=== PATIENT | female | born 1940 | race Caucasian/White ===

== ENCOUNTER 2018-02-03 23:16 | Observation (INO) | payer OTHER ==
--- NOTE | 2018-02-04 00:21 | RAD ---
EXAM DESCRIPTION: Chest,1 View CLINICAL HISTORY: 77 years Female mild confusion COMPARISON: None. FINDINGS: Heart appears at the upper limits. Mediastinum appears widened with some increased density in the perihilar regions and upper lobes. Question infiltrate versus fibrosis. No pleural effusion. No pneumothorax. IMPRESSION: Mild widening of the mediastinum likely on the basis of ectatic vasculature Prominent costochondral cartilage of the first ribs bilaterally There is prominent interstitial markings particularly in the perihilar regions likely related to senescent lung or fibrotic change. Acute infiltrate not entirely excluded. Electronically signed by: Yani Singh MD 02/04/2018 12:20 AM CDT
--- NOTE | 2018-02-04 00:45 | CT ---
PROCEDURE: Head CLINICAL HISTORY: 77 years Female confusion COMPARISON: None. TECHNIQUE: Contiguous axial CT images obtained through the brain without IV contrast. This exam was performed according to our department optimization program which includes automated exposure control, adjustment of the mA and/or kv according to patient size and/or use of iterative reconstruction technique. FINDINGS: The ventricles and sulci are prominent consistent with mild age-related atrophy. Mild periventricular white matter disease. No midline shift or mass effect. No masses identified. No acute intracranial hemorrhage. Previous lacunar infarct in the left basal ganglia. Motion artifact limits evaluation of the superior aspect of the hemispheres. No fluid or significant mucosal thickening in the visualized paranasal sinuses. No depressed calvarial fractures. IMPRESSION: No acute intracranial abnormality is identified. Electronically signed by: Yani Singh MD 02/04/2018 12:44 AM CDT
[2018-02-04] MEDS ORDERED: cefTRIAXone SODIUM 1 GM in SODIUM CHL 0.9% 50ML MIN-BAG+ 50 ML IVPB ONE (02:03)
[2018-02-04] MEDS ORDERED: SODIUM CHLORIDE 0.9% 1000ML 1,000 ML IVS ONE (02:04)
[2018-02-04] MEDS ORDERED: SODIUM CHL 0.9% 50ML MIN-BAG+ 50 ML IVPB ONE ×3 (02:06→19:20)
[2018-02-04] MEDS ORDERED: cefTRIAXone SODIUM 1 GM VIAL ONE ×3 (02:06→19:21)
[2018-02-04] MEDS ORDERED: FOLIC ACID INJ 5 MG/ML VIAL IV ONE (02:45)
--- NOTE | 2018-02-04 02:45 | ED.PDOC ---
History of Present Illness - General Chief Complaint: Neuro Symptoms/Deficits Stated Complaint: altered mental status Time Seen by Provider: 02/03/18 23:20 Source: patient, family Exam Limitations: no limitations - History of Present Illness Initial Comments: the patient is a 77-year-old female brought into the emergency room by her family secondary to some mild confusion that's been progressive since around 3 or 4 in the afternoon. The patient is in visiting family from [place]. She does have multiple long-term medical problems including chronic pain and anxiety as well as some neuropathy for which she takes multiple sedating medications to treat these issues. She has not had any falls. No chest pain or shortness of breath. No syncope or near syncope. She has just been mildly confused through the afternoon sometimes talking to herself a little bit. Speech is a little bit slurred. She is drowsy. She has taken her evening sleeping medications. She moves all extremities well. She is actually oriented 4 on my exam. there are no focal neurological deficits. She is pleasant and cooperative. She does have rheumatoid arthritis and does take methotrexate. Timing/Duration: unsure Severity: mild Improving Factors: nothing Worsening Factors: nothing Associated Symptoms: denies symptoms Allergies/Adverse Reactions: Allergies Losartan Allergy (Verified 02/03/18 23:57) martinez Allergy (Uncoded 02/03/18 23:57) Home Medications: Ambulatory Orders Amlodipine Besylate 10 mg PO DAILY 02/03/18 Aspirin [Aspirin Adult Low Dose] 81 mg PO DAILY 02/03/18 Atorvastatin Calcium 40 mg PO BEDTIME 02/03/18 Baclofen 10 mg PO NOON 02/03/18 Carvedilol [Coreg] 3.125 mg PO BID 02/03/18 Docusate Sodium [Colace Cap] 100 mg PO PRN 02/03/18 Folic Acid 1 mg PO DAILY 02/03/18 Hydralazine HCl 50 mg PO TID 02/03/18 Hydromorphone HCl 4 mg PO DAILY 02/03/18 Levothyroxine Sodium [Synthroid] 112 mcg PO DAILY@0700 02/03/18 Lorazepam 1 mg PO PRN 02/03/18 Methotrexate Sodium [Methotrexate] 7.5 mg PO WKLY 02/03/18 Nortriptyline HCl 50 mg PO BEDTIME 02/03/18 Omeprazole 20 mg PO PRN 02/03/18 Ropinirole Hydrochloride [Ropinirole HCl] 0.25 mg PO DAILY 02/03/18 Trazodone HCl 50 mg PO BEDTIME 02/03/18 Vitamin D & K 1 tablet PO 02/03/18 Review of Systems - Review of Systems Constitutional: States: malaise EENTM: States: no symptoms reported Respiratory: States: no symptoms reported Cardiology: States: no symptoms reported Gastrointestinal/Abdominal: States: no symptoms reported Genitourinary: States: no symptoms reported Musculoskeletal: States: see HPI Skin: States: no symptoms reported Neurological: States: see HPI Endocrine: States: no symptoms reported All other Systems: No Change from Baseline Past Medical History (General) - Patient Medical History Hx Seizures: No Hx Stroke: No Hx Dementia: No Hx Asthma: No Hx of COPD: No Hx Cardiac Disorders: No Hx Congestive Heart Failure: No Hx Pacemaker: No Hx Hypertension: Yes Hx Thyroid Disease: Yes Hx Diabetes: No Hx Gastroesophageal Reflux: Yes Hx Renal Disease: No Hx Cancer: Yes - left throat melanoma Hx of HIV: No Surgical History: other - Vaccination History Hx Tetanus, Diphtheria Vaccination: No Hx Influenza Vaccination: Yes Hx Pneumococcal Vaccination: No Family Medical History - Family History Son Living Status: Still Living Physical Exam - Physical Exam General Appearance: Other - the patient is drowsy but easily arousable. She is oriented 4. No acute distress. Speech is a little bit slurred, but does improve the more awake she has. Eye Exam: bilateral normal Ears, Nose, Throat: hearing grossly normal, normal ENT inspection, normal pharynx Neck: non-tender, full range of motion Respiratory: lungs clear, normal breath sounds, no respiratory distress, no accessory muscle use Cardiovascular/Chest: normal peripheral pulses, regular rate, rhythm, no edema Peripheral Pulses: radial,right: 2+, radial,left: 2+, dorsalis pedis,right: 2+, dorsalis pedis,left: 2+ Gastrointestinal/Abdominal: non tender, soft Rectal Exam: deferred Back Exam: no CVA tenderness Extremity: non-tender, no pedal edema, no calf tenderness, normal capillary refill, other - chronic limitations related to arthritis Neurologic: compliance assistant II-XII nml as tested, alert - but drowsy, normal mood/affect, oriented x 3, other - she does have chronic peripheral neuropathy but strength appears to be preserved throughout Skin Exam: normal color Comments: Vital Signs - 24 hr 02/03/18 02/04/18 02/04/18 23:16 00:17 00:45 Temperature 99.7 F H Pulse Rate [ 85 87 84 monitor] Respiratory 16 16 Rate Blood Pressure 155/85 149/77 145/65 [Left Arm] O2 Sat by Pulse 95 97 Oximetry 02/04/18 02/04/18 02/04/18 00:46 00:47 01:17 Temperature Pulse Rate [ 90 93 H 80 monitor] Respiratory 15 Rate Blood Pressure 149/80 147/52 149/71 [Left Arm] O2 Sat by Pulse 98 Oximetry 02/04/18 02:23 Temperature 98.9 F Pulse Rate [ 92 H monitor] Respiratory 15 Rate Blood Pressure 166/72 [Left Arm] O2 Sat by Pulse 94 L Oximetry Progress - Progress Progress: 02/04/18 02:51 the patient is a 77-year-old female presenting to the emergency room with mild delirium. Most likely this is a combination of some dehydration and multiple sedating-type medications. For now the sedatives will be held. She is receiving a liter of IV fluids. She will need to be monitored to make sure that her delirium corrects with this. She does additionally have a very small urinary tract infection. Urine will be cultured. She is being given one dose of Rocephin currently. She is additionally receiving empirically a milligram of folic acid IV. She does need to be monitored for development of any other clinically evident infection as she does take methotrexate. Continue telemetry monitoring. Repeat CBC tomorrow may be warranted for reevaluation of her hemoglobin and hematocrit as they are mildly low and we do not have any previous baseline to compare to. She has not clinically had any evidence of any GI bleed in the last 6 or 7 years according to her. Stool guaiac be performed if she has a bowel movement. - Results/Orders Results/Orders: 02/03/18 23:29 Telemetry .CONTINUOUS Vital Signs-Tilt PRN 02/03/18 23:30 EKG STAT 02/04/18 00:10 URINE CULTURE W/COLONY COUNT Stat 02/04/18 02:04 Sodium Chloride 0.9% 1000ML [Ns 1000 ml] 1,000 ml IVS ONCE 02/04/18 23:30 EKG STAT Laboratory Results - last 24 hr 02/03/18 02/03/18 02/03/18 00:10 00:10 23:29 WBC 3.8 L RBC 2.98 L Hgb 9.9 L Hct 29.4 L MCV 98.7 MCH 33.2 H MCHC 33.7 RDW 15.1 H Plt Count 140 MPV 8.9 Absolute Neuts (auto) 3.00 Absolute Lymphs (auto) 0.40 L Absolute Monos (auto) 0.30 Absolute Eos (auto) 0.10 Absolute Basos (auto) 0.00 Neutrophils % 78.7 H Lymphocytes % 9.2 L Monocytes % 8.9 Eosinophils % 2.7 Basophils % 0.5 PT 10.0 INR 1.00 PTT (SP) 30.5 Sodium 135 Potassium 4.1 Chloride 102 Carbon Dioxide 21 Anion Gap 16.1 BUN 41 H Creatinine 1.60 H BUN/Creatinine Ratio 25.6 H Random Glucose 127 H Serum Osmolality 281.8 Calcium 9.1 Magnesium 1.7 L Total Bilirubin 0.6 AST 42 ALT 43 Alkaline Phosphatase 84 Creatine Kinase 76 CK-MB (CK-2) 2.2 CK-MB (CK-2) % Not Reportable Troponin I < 0.02 B-Natriuretic Peptide 22.5 Serum Total Protein 6.8 Albumin 3.5 Globulin 3.3 Albumin/Globulin Ratio 1.1 TSH 0.34 Urine Color Urine Appearance Urine pH Ur Specific [place] Urine Protein Urine Glucose (UA) Urine Ketones Urine Blood Urine Nitrite Urine Bilirubin Urine Urobilinogen Ur Leukocyte Esterase Urine RBC Urine WBC Ur Epithelial Cells Urine Bacteria 02/04/18 00:10 WBC RBC Hgb Hct MCV MCH MCHC RDW Plt Count MPV Absolute Neuts (auto) Absolute Lymphs (auto) Absolute Monos (auto) Absolute Eos (auto) Absolute Basos (auto) Neutrophils % Lymphocytes % Monocytes % Eosinophils % Basophils % PT INR PTT (SP) Sodium Potassium Chloride Carbon Dioxide Anion Gap BUN Creatinine BUN/Creatinine Ratio Random Glucose Serum Osmolality Calcium Magnesium Total Bilirubin AST ALT Alkaline Phosphatase Creatine Kinase CK-MB (CK-2) CK-MB (CK-2) % Troponin I B-Natriuretic Peptide Serum Total Protein Albumin Globulin Albumin/Globulin Ratio TSH Urine Color Yellow Urine Appearance Clear Urine pH 5.0 Ur Specific [place] 1.020 Urine Protein 30 Urine Glucose (UA) Negative Urine Ketones Trace Urine Blood Trace-lysed H Urine Nitrite Negative Urine Bilirubin Negative Urine Urobilinogen 0.2 Ur Leukocyte Esterase Small H Urine RBC 1-3 Urine WBC 5-10 H Ur Epithelial Cells 1-3 Urine Bacteria 1+ EKG shows normal sinus rhythm at 81 bpm. Possible mild right axis deviation. No acute ST segment changes or T-wave changes consistent with current ischemia. Head CT is negative for any acute pathology. Chest x-ray does show widening in the upper mediastinum which looking at her paperwork and talking to her is a longer standing issue. no pneumothorax or new obvious infiltrates. - EKG/XRAY/CT CT Ordered: Yes CT Interpretation Call Back: No - acute abnormality Departure - Departure Clinical Impression: Dehydration, Delirium, Cystitis Disposition: Admit Patient Condition: Fair Home Medications: Ambulatory Orders Amlodipine Besylate 10 mg PO DAILY 02/03/18 Aspirin [Aspirin Adult Low Dose] 81 mg PO DAILY 02/03/18 Atorvastatin Calcium 40 mg PO BEDTIME 02/03/18 Baclofen 10 mg PO NOON 02/03/18 Carvedilol [Coreg] 3.125 mg PO BID 02/03/18 Docusate Sodium [Colace Cap] 100 mg PO PRN 02/03/18 Folic Acid 1 mg PO DAILY 02/03/18 Hydralazine HCl 50 mg PO TID 02/03/18 Hydromorphone HCl 4 mg PO DAILY 02/03/18 Levothyroxine Sodium [Synthroid] 112 mcg PO DAILY@0700 02/03/18 Lorazepam 1 mg PO PRN 02/03/18 Methotrexate Sodium [Methotrexate] 7.5 mg PO WKLY 02/03/18 Nortriptyline HCl 50 mg PO BEDTIME 02/03/18 Omeprazole 20 mg PO PRN 02/03/18 Ropinirole Hydrochloride [Ropinirole HCl] 0.25 mg PO DAILY 02/03/18 Trazodone HCl 50 mg PO BEDTIME 02/03/18 Vitamin D & K 1 tablet PO 02/03/18 Decision To Admit - Decistion To Admit Decision to Admit Reason: Medical Nature Decision to Admit Date: 02/04/18 Decision to Admit Time: 02:55
[2018-02-04] MEDS ORDERED: SODIUM CHLORIDE 0.9% (FLUSH) 10 ML SYG IV PRN (02:48)
[2018-02-04] MEDS ORDERED: IV SET AND CAP CHANGE INJ INJ SCH (03:00)
--- NOTE | 2018-02-04 03:22 | HP ---
SUPERVISING PHYSICIAN: Erwin Parsons MD CHIEF COMPLAINT: Confusion. HISTORY OF PRESENT ILLNESS: This is a 77-year-old female who was brought to the Emergency Room by her family stating she has been having some increased confusion since this afternoon. The patient is actually here visiting her son from [place]. She got into town on Thursday and basically from the airport, went home, went to sleep, woke up and had some breakfast and had some increased confusion. She also states she has been weak. She does not complain of any fevers or chills, no nausea or vomiting. Nothing makes the confusion any worse or better. She states she does not have this issue at home. In the Emergency Room, her workup included lab as well as urinalysis. Her urinalysis showed small leukocyte esterase, 5 to 10 WBCs. Chemistry showed acute kidney injury with BUN 41, creatinine 1.60. White blood cell count was 3.8, hemoglobin 9.9, platelet count 140 and 78.7% neutrophils. She had a CT of the head which showed no acute intracranial abnormalities. The patient was referred for Observation by Dr. Saeed in the Emergency Room. I saw her this morning and currently she is alert and oriented. In discussing her history of present illness, she seems to be alert and oriented times 4, however, when talking about her medical history, we actually discussed her rheumatoid arthritis and what she was taking for it. We continued to discuss her past medical history and towards the end, she told me once again she had rheumatoid arthritis. She had obviously forgotten that she had already told me she had rheumatoid arthritis. Other than that, her exam is fairly benign. PAST MEDICAL HISTORY: 1. Hypertension. 2. Rheumatoid arthritis. 3. Hypothyroidism. 4. Osteoarthritis. 5. Hyperlipidemia. 6. Anxiety. PAST SURGICAL HISTORY: 1. Right facial melanoma resection. CURRENT MEDICATIONS: 1. Amlodipine 10 mg p.o. daily. 2. Aspirin 81 mg p.o. daily. 3. Atorvastatin 40 mg p.o. q.h.s. 4. Baclofen 10 mg p.o. at noon. 5. Carvedilol 3.125 mg p.o. b.i.d. 6. Colace 100 mg p.o. p.r.n. for constipation. 7. Folic acid 1 mg p.o. daily. 8. Hydralazine 50 mg p.o. t.i.d. 9. Hydromorphone 4 mg p.o. daily. 10. Levothyroxine 112 mcg p.o. daily. 11. Lorazepam 1 mg p.o. p.r.n. for anxiety. 12. Methotrexate 7.5 mg p.o. weekly. 13. Nortriptyline 50 mg p.o. at bedtime. 14. Omeprazole p.o. p.r.n. for reflux. 15. Requip 0.25 mg p.o. daily. 16. Trazodone 50 mg p.o. at bedtime. ALLERGIES: LOSARTAN. FAMILY HISTORY: Family history reviewed and she cannot think of any significant medical history in her mother, father, brothers or sisters. SOCIAL HISTORY: Nondrinker, nonsmoker. No illicit drugs. REVIEW OF SYSTEMS: CONSTITUTIONAL: No fever or chills. No recent weight loss or weight gain. HEENT: No headaches, vision changes, ear pain, nasal congestion or throat pain. RESPIRATORY: No cough, hemoptysis or pleuritic chest pain. CARDIOVASCULAR: No chest pain, palpitations or peripheral edema. GASTROINTESTINAL: No nausea, vomiting, diarrhea, constipation or abdominal pain. GENITOURINARY: No dysuria, frequency or flank pain. HEMATOLOGIC: No easy bruising and no transfusion reaction. MUSCULOSKELETAL: She does have some joint pain, primarily in her knees and muscle cramping. ENDOCRINE: No polydipsia, polyuria or polyphagia. No heat or cold intolerance. NEUROLOGIC: Positive for weakness, positive for some confusion. No syncope, paresthesias or seizures. PHYSICAL EXAMINATION: VITAL SIGNS: Blood pressure 182/77. Heart rate 77. Respiratory rate 16. Temperature 97.7. Oxygen saturation 96%. GENERAL: Ms. Liz is a 77-year-old female who in no active distress currently. HEENT: Normocephalic, atraumatic. Pupils are equal and reactive. No nasal drainage. Throat with moist mucosa. NECK: Supple. Midline trachea. No jugular venous distention. CHEST: Symmetrical with equal rise and fall of the chest with inspiration and expiration. Lung sounds are clear to auscultation bilaterally. CARDIOVASCULAR: Regular rate and rhythm. Normal S1, S2. ABDOMEN: Soft. Positive bowel sounds. No tenderness to palpation. No organomegaly. GENITOURINARY: Deferred. EXTREMITIES: Lower extremities with no edema. Pulses 2+. Capillary refill is less than 2 seconds. NEUROLOGIC: The patient is alert and oriented. Moves all extremities. Extraocular movements are intact. There are no focal deficits. Cranial nerves II-XII are grossly intact. LABORATORY: Labs and films are as discussed in history of present illness. ASSESSMENT: 1. Altered mental status. 2. Acute kidney injury. 3. Urinary tract infection. 4. History of rheumatoid arthritis. 5. Hypertension. PLAN: At this point, the patient is being placed on IV fluids as well as empiric antibiotics for urinary tract infection. We will continue these and reevaluate her labs in the morning. We will follow cultures as well. It also appears that altered mental status could be contributed to by some of the medications she is on. She is on Dilaudid, trazodone, nortriptyline and lorazepam. These certainly can contribute to some confusion. However, it appears she is pretty lucid for the most part this morning, but has some forgetfulness. I am wondering if she likely has onset of dementia. She would benefit from outpatient workup for dementia and possibly medications for such. She is from [place] and has a primary care physician there she sees on a regular basis. I am restarting her home medications except for the possibly contributing sedative medications. We will see how she does with this. #[id number] [facility]
[2018-02-04] MEDS: ENOXAPARIN SODIUM 30 MG/0.3 ML SYG SUBCU SCH (03:49)
[2018-02-04] MEDS: SODIUM CHLORIDE 0.9% 1000ML 1,000 ML IVS PRN ×2 (09:25→20:39)
[2018-02-04] MEDS ORDERED: NON-FORMULARY MEDICATION 1 EA MIS (Hydralazine Hcl [Hydralazine Hcl] 50 MG) PO SCH (09:45)
[2018-02-04] MEDS ORDERED: OMEPRAZOLE CAP 20 MG CAP PO PRN (09:45)
[2018-02-04] MEDS ORDERED: NON-FORMULARY MEDICATION 1 EA MIS (Amlodipine Besylate [Amlodipine Besylate] 10 MG) PO SCH (09:45)
[2018-02-04] MEDS ORDERED: DOCUSATE SODIUM 100 MG CAP PO SCH (10:00)
[2018-02-04] MEDS ORDERED: amLODIPine BESYLATE 5 MG TAB ONE (10:06)
[2018-02-04] MEDS: LEVOTHYROXINE SODIUM 0.112 MG TAB PO SCH (10:26)
[2018-02-04] MEDS: FOLIC ACID 1 MG TAB PO SCH (10:26)
[2018-02-04] MEDS: CARVEDILOL 3.125 MG TAB PO SCH ×2 (10:26→20:40)
[2018-02-04] MEDS: ASPIRIN (CHEWABLE) 81 MG TAB PO SCH (10:26)
[2018-02-04] MEDS: cefTRIAXone SODIUM 1 GM in SODIUM CHL 0.9% 50ML MIN-BAG+ 50 ML IVPB SCH (14:48)
[2018-02-04] MEDS ORDERED: ATORVASTATIN 20 MG TAB PO SCH (21:00)
[2018-02-05] MEDS: cefTRIAXone SODIUM 1 GM in SODIUM CHL 0.9% 50ML MIN-BAG+ 50 ML IVPB SCH ×2 (03:03→16:41)
[2018-02-05] MEDS: ENOXAPARIN SODIUM 30 MG/0.3 ML SYG SUBCU SCH (03:03)
[2018-02-05] MEDS: LEVOTHYROXINE SODIUM 0.112 MG TAB PO SCH (06:12)
[2018-02-05] MEDS: CARVEDILOL 3.125 MG TAB PO SCH (08:21)
[2018-02-05] MEDS: ASPIRIN (CHEWABLE) 81 MG TAB PO SCH (08:21)
[2018-02-05] MEDS: FOLIC ACID 1 MG TAB PO SCH (08:21)
[2018-02-05] MEDS ORDERED: POTASSIUM CHLORIDE 20 MEQ TAB PO ONE (08:37)
[2018-02-05] MEDS ORDERED: amLODIPine BESYLATE 5 MG TAB PO SCH (09:00)
[2018-02-05] MEDS: SODIUM CHLORIDE 0.9% 1000ML 1,000 ML IVS PRN (11:38)
[2018-02-05 16:01] VITALS: BP 165/71; TEMP 98.4; O2SAT 93
--- NOTE | 2018-02-06 10:18 | DS ---
SUPERVISING PHYSICIAN: Erwin Parsons MD DISCHARGE DIAGNOSES: 1. Altered mental status. 2. Acute kidney injury. 3. Urinary tract infection. 4. History of rheumatoid arthritis. 5. Hypertension. HISTORY OF PRESENT ILLNESS: This is a 77-year-old female who presented to the Emergency Room by her family with complaints of increased confusion. The patient is actually lives in [place] and is visiting her son. Over the previous day and a half she had increasing confusion with weakness. There were no complaints of fever or chills, no nausea or vomiting. In the Emergency Room her urinalysis showed a small amount of leukocyte esterase, 5 to 10 WBCs. Her chemistries showed acute kidney injury with BUN of 41, creatinine 1.6. WBC 3.8 , hemoglobin 9.9, platelet count 140,000 and 78.7% neutrophils. CT of the head showed no acute intracranial abnormalities. She was placed in observation in the hospital. HOSPITAL COURSE: She received fluids in the Emergency Room and her home medications were restarted. She was also started on Ceftriaxone for the urinary tract infection. Cultures were obtained on her urine prior to starting antibiotics. Her vital signs had been basically within normal limits. She had a low grade temperature of 99.8. This morning her laboratory showed a normalized WBC of 5.3 with electrolytes that are within normal limits with the exception of her potassium which was low at 3. BUN 18, creatinine 1.02. At this time she is alert and oriented. Her son is at bedside and states she is at baseline. They also said she would remain in [place] for some time so she will followup with his primary care physician which is Noemí Wong at [facility]. She will be discharged home today in stable condition. DISCHARGE PLAN: The patient will be discharged home in stable condition. She is to resume her previous medications, her previous activity and her previous diet. She has a followup with Noemí Wong NP on 02/09/18 at 9:30 AM. I have sent her a prescription for Cefdinir for 10 days. Her repeat potassium this morning after supplementation was 4. It would be beneficial at her followup to do an electrolyte panel as well as followup on her urine culture. She is to return to the hospital or call Noemí Wong's office for any problems or complications. DISCHARGE MEDICATIONS: 1. Vitamin D and vitamin K. 2. Trazodone. 3. Ropinirole. 4. Omeprazole. 5. Nortriptyline. 6. Methotrexate. 7. Lorazepam. 8. Levothyroxine. 9. Hydromorphone. 10. Hydralazine. 11. Folic acid. 12. Colace. 13. Carvedilol. 14. Baclofen. 15. Atorvastatin. 16. Aspirin. 17. Amlodipine. 18. Cefdinir. #[id number] [facility]
== END 2018-02-05 17:15 | disposition home or self-care (01) ==
LOC: ER 23:16 → MS 02-04 03:21
PROVIDERS: ADMIT Nurse Practitioner; ATTEND Nurse Practitioner Acute Care
DX: R41.82 Altered mental status, unspecified (principal); N17.9 Acute kidney failure, unspecified; N39.0 Urinary tract infection, site not specified; M06.9 Rheumatoid arthritis, unspecified; I10 Essential (primary) hypertension; E86.0 Dehydration; E87.6 Hypokalemia; E03.9 Hypothyroidism, unspecified; E78.5 Hyperlipidemia, unspecified; F41.9 Anxiety disorder, unspecified; M19.90 Unspecified osteoarthritis, unspecified site; G89.29 Other chronic pain; G62.9 Polyneuropathy, unspecified; Z79.1 Long term (current) use of non-steroidal anti-inflammatories (NSAID); Z79.82 Long term (current) use of aspirin; Z79.891 Long term (current) use of opiate analgesic; Z79.899 Other long term (current) drug therapy; Z88.8 Allergy status to other drugs, medicaments and biological substances; Z85.820 Personal history of malignant melanoma of skin
CPT/HCPCS: 96361 ×2; 96372 ×2; 96376; J0696 ×3; J1650 ×2; J7030 ×4; J7050 ×3; 80048; 82553; 80053; 87086; 36415 ×2; 87077; 87186; 81001; 85025 ×2; 82550; 83735; 85730; 84132; 85610; 86592; 84443; 84484; 83880; 71045; 70450; 99285; 93005; 96365; 96375